=== PATIENT | female | born 1945 | race Caucasian/White ===

== ENCOUNTER 2017-08-15 13:33 | Emergency (ER) | payer MEDICARE, MEDICAID ==
[~2017-08-15] VITALS: Ht 162.6 cm; Wt 101.0 kg
[2017-08-15 13:59] VITALS: BP 177/73
[2017-08-15] MEDS ORDERED: HYDROXYZINE 10 MG TABLET PO ONE (14:45)
[2017-08-15] MEDS ORDERED: ACETAMINOPHEN 325MG TABLET PO ONE (14:45)
== END 2017-08-15 15:49 | disposition home or self-care (01) ==
LOC: ER 13:33
DX: T14.8XXA Other injury of unspecified body region, initial encounter (principal); W57.XXXA Bitten or stung by nonvenomous insect and other nonvenomous arthropods, initial encounter; Y93.89 Activity, other specified; Y92.89 Other specified places as the place of occurrence of the external cause
CPT/HCPCS: 99283

== ENCOUNTER 2018-10-01 14:24 | Emergency (ER) | payer MEDICARE, MEDICAID ==
[~2018-10-01] VITALS: Ht 165.1 cm; Wt 128.0 kg
[2018-10-01 17:07] VITALS: BP 149/73
== END 2018-10-01 17:08 | disposition home or self-care (01) ==
LOC: ER 14:24
DX: S91.112A Laceration without foreign body of left great toe without damage to nail, initial encounter (principal); W26.8XXA Contact with other sharp object(s), not elsewhere classified, initial encounter; Y93.89 Activity, other specified; Y92.89 Other specified places as the place of occurrence of the external cause
CPT/HCPCS: 99283